=== PATIENT | female | born 1965 | race Caucasian/White ===

== ENCOUNTER 2025-04-22 11:30 | Observation (INO) ==
[2025-04-22] MEDS: ASPIRIN CHEW 324 MG PO STA (12:01)
--- NOTE | 2025-04-22 12:33 | XRay Report ---
Technique: A frontal view of the chest was obtained Comparison is made to the prior examination dated 03/15/2025 Findings: There are no confluent pulmonary infiltrates. The heart size is within normal limits. No pleural effusion or pneumothorax is seen. There is no definite pulmonary nodule. No fracture is noted. There is a cervical fusion Impression: No active disease Electronically signed by Anup Garcia 04-22-2025 12:33 PM
[2025-04-22 12:39] LABS: Hematocrit (blood only) 40.7 % (37.0-47.0); Hemoglobin 14.0 g/dl (12.0-16.0); Immature Granulocytes # (auto) 0.01 K/uL (0.01-0.20); Immature Granulocytes % (auto) 0.1 %; Mean Corpuscular Hemoglobin 31.7 pg (25.0-34.0); Mean Corpuscular Volume 92.1 fL (80.0-100.0); Platelet Count 248 K/uL (130-400); RDW Standard Deviation 40.5 fL (36.4-46.3); Red Blood Count 4.42 M/uL (4.20-5.40); White Blood Count 8.12 K/ul (4.8-10.8)
--- NOTE | 2025-04-22 12:52 | Emergency Department Note ---
History of Present Illness General Chief Complaint: Chest Pain Stated Complaint: CHEST PAIN Time Seen by Provider: 04/22/25 11:41 History of Present Illness Provider Complaint: chest pain Time: 02:00 Duration: intermittent Onset: during rest Pain Location: substernal Pain Radiation: none Severity: moderate Quality: + heaviness Relieved By: + nothing Exacerbated By: + nothing Context: no recent illness, no recent surgery, no recent immobilization, no recent travel, no trauma/injury, no new medications or no history of DVT/PE Associated symptoms: no diaphoresis, no dyspnea, no syncope, no palpitations, no fever or no cough Home Medications Medication Instructions Recorded Confirmed Type citalopram 40 mg tablet 40 mg PO HS 02/17/23 04/22/25 History esomeprazole magnesium 40 mg 40 mg PO HS 02/17/23 04/22/25 History capsule,delayed release metoprolol succinate 25 mg 25 mg PO HS 02/17/23 04/22/25 History tablet,extended release 24 hr sucralfate 1 gram tablet (Carafate) 1 g PO BID PRN gerd 02/17/23 04/22/25 History dicyclomine 10 mg capsule 10 mg PO QID PRN abdominal pain 04/11/24 04/22/25 Rx #14 caps benzonatate 100 mg capsule 100 mg PO TID PRN cough #15 caps 03/15/25 04/22/25 Rx naproxen 500 mg tablet 500 mg PO BID PRN Pain 04/22/25 04/22/25 History tizanidine 2 mg tablet 0 mg PO DIRECTED PRN MUSCLE 04/22/25 04/22/25 History SPASMS Allergies Allergy/AdvReac Type Severity Reaction Status Date / Time adhesive Allergy Mild RASH Verified 04/22/25 14:53 iodine Allergy Mild ON Verified 04/22/25 14:53 SKIN-RASH/BETADINE HAS BEEN OK IN PAST PER PT? azithromycin [From Zithromax] Allergy Unknown CAN'T Verified 04/22/25 14:53 REMEMBER [place] Allergy Mild RASH Uncoded 04/22/25 14:53 Past Med/Surg History Problem List (Updated 04/22/25 @ 15:41 by Popeye Skaggs MD) Chest pain (Acute) Syncope and collapse Gastro-esophageal reflux Brachial neuritis or radiculitis Syncope Cervical stenosis of spinal canal (Acute) Medical History Vitamin D deficiency Tobacco abuse Dysuria Frequency of micturition Injury of right ankle Headache Pain in joint Radiculopathy, cervical region Benign paroxysmal vertigo, bilateral Somnolence Nail disorder Acute sinusitis Cramp and spasm Cervicalgia Diaphragmatic hernia without obstruction or gangrene Toxic effect of contact with other venomous marine animals, accidental (unintentional), initial encounter Chest pain Abdominal pain Pain in right foot Abnormal blood chemistry Hypopotassemia Candidiasis, skin or nails Candidiasis of mouth Malaise and fatigue Acute upper respiratory infection, unspecified Major depressive disorder with single episode Essential hypertension Social History Smoking Status: Current every day smoker Tobacco Type: Cigarettes Preferred Language: [place] Feels Safe at Home: Yes Physical Exam Vital Signs Vital Signs - 24 hr 04/22/25 11:33 04/22/25 12:03 04/22/25 12:03 Temperature 36.7 C Temperature Source Temporal Artery Scan Pulse Rate 79 72 Pulse Rate [Apical] 68 Pulse Rhythm Regular Pulse Rhythm [Apical] Regular Pulse Strength [Apical] Normal Respiratory Rate 19 14 14 Respiratory Effort / Characteristics Non-Labored Spontaneous Non-Labored Spontaneous Respiratory Depth Normal Normal Respiratory Pattern Regular Blood Pressure 149/88 H Blood Pressure [Right Arm] 149/77 H Blood Pressure Mean 108 Blood Pressure Mean [Right Arm] 101 Blood Pressure Position [Right Arm] Lying Pulse Oximetry 99 99 98 Oxygen Delivery Method Room Air Room Air Room Air Sepsis Recent Fever Within 48 Hours No Sepsis New/Unexplained Change in Mental Status No Sepsis Action Taken by Nursing No Action Required 04/22/25 12:05 04/22/25 12:09 04/22/25 14:02 Temperature Temperature Source Pulse Rate 62 Pulse Rate [Apical] 59 L Pulse Rhythm Pulse Rhythm [Apical] Regular Pulse Strength [Apical] Normal Respiratory Rate Respiratory Effort / Characteristics Non-Labored Spontaneous Respiratory Depth Normal Respiratory Pattern Regular Blood Pressure Blood Pressure [Right Arm] 131/79 Blood Pressure Mean Blood Pressure Mean [Right Arm] 96 Blood Pressure Position [Right Arm] Lying Pulse Oximetry 97 98 Oxygen Delivery Method Room Air Room Air Sepsis Recent Fever Within 48 Hours Sepsis New/Unexplained Change in Mental Status Sepsis Action Taken by Nursing Physical Exam GENERAL: oriented to person, place, and time. appears well-developed and well- nourished. HENT: Exam performed. - Head: Normocephalic and atraumatic. EYES: Conjunctivae and EOM are normal. Right eye exhibits no discharge. Left eye exhibits no discharge. No scleral icterus. NECK: Normal range of motion. Neck supple. No JVD present. CV: Normal rate, regular rhythm, normal heart sounds and intact distal pulses. There is no peripheral edema. Palpable radial pulses bue. PULM/CHEST: Effort normal and breath sounds normal. No respiratory distress. No stridor. no wheezes. no rales. ABD: The abdomen is soft. There is no tenderness. NEURO: Motor and sensation grossly intact. SKIN: Skin is warm and dry. He is not diaphoretic. PSYCH: normal mood and affect. Behavior is normal. Judgment and thought content normal. Course Course 1141: The patient was evaluated in room B7. A complete history and physical exam was performed Cardiac monitoring: An order was placed for continuous cardiac monitoring. The monitor shows a rate of 70 with sinus rhythm interpreted by me 1410: Vital signs stable. Labs and imaging are unremarkable. Patient be admitted for chest pain rule out ACS. Administered Medications Discontinued Medications Aspirin (Aspirin Chew 324 Mg) 324 mg PO NOW STA Stop: 04/22/25 11:42 Last Admin: 04/22/25 12:01 Dose: 324 mg Documented By: CHERYL Medical Decision Making Laboratory Data Attestation: I reviewed the patient's lab results. 04/22/25 12:07 04/22/25 13:15 Labs: Lab Results 04/22/25 04/22/25 04/22/25 Range/Units 12:07 13:15 13:31 WBC 8.12 (4.8-10.8) K/ul RBC 4.42 (4.20-5.40) M/uL Hgb 14.0 (12.0-16.0) g/dl POC Hgb 12.6 (12.0-16.0) g/dl Hct 40.7 (37.0-47.0) % POC Hct 37 (37-47) % MCV 92.1 (80.0-100.0) fL MCH 31.7 (25.0-34.0) pg MCHC 34.4 (32.0-36.0) g/dL RDW Std Deviation 40.5 (36.4-46.3) fL RDW Coeff of Jessica 11.9 (11.5-14.5) % Plt Count 248 (130-400) K/uL MPV 10.8 (9.4-12.4) fL Immature Gran % (Auto) 0.1 % Neut % (Auto) 50.6 % Lymph % (Auto) 42.9 % [place] % (Auto) 4.9 % Eos % (Auto) 1.0 % Baso % (Auto) 0.5 % Neut # (Auto) 4.11 (1.40-6.50) K/uL Lymph # (Auto) 3.48 H (1.20-3.40) K/uL [place] # (Auto) 0.40 (0.11-0.59) K/uL Eos # (Auto) 0.08 (0.00-0.50) K/uL Baso # (Auto) 0.04 (0.00-0.20) K/uL Immature Gran # (Auto) 0.01 (0.01-0.20) K/uL PT Cancelled 10.2 INR Cancelled 0.9 APTT Cancelled 27 PTT Ratio Cancelled 1.0 POC Sodium 142 (135-144) mmol/L Sodium 140 (136-145) mmol/L POC Potassium 4.0 (3.3-5.0) mmol/L Potassium TNP 4.1 POC Chloride 105 (101-112) mmol/L Chloride 107 (98-107) mmol/L Carbon Dioxide 29 (21-32) mmol/L POC Total CO2 27 (24-31) mmol/L Anion Gap 4 (3-11) POC Anion Gap 16.0 (16-25) mmol/L POC BUN 15 (7-18) mg/dl BUN 15 (6-23) mg/dl Creatinine 0.83 (0.6-1.2) mg/dl POC Creatinine 0.9 (0.6-1.3) mg/dl Est Cr Clr Drug Dosing 74.5 ml/min eGFR 82.17 BUN/Creatinine Ratio 18.1 (10-20) Glucose 95 (70-99(Fasting)) mg/dl POC Glucose (other) 95 (70-99) mg/dl Calcium 9.4 (8.6-10.3) mg/dl POC Ioniz Calcium Ralph 1.16 (1.12-1.32) mmol/l Total Bilirubin 0.5 (0.2-1.0) mg/dl Direct Bilirubin 0.1 (0-0.2) mg/dl AST 20 (13-39) U/L ALT 33 (7-52) U/L Alkaline Phosphatase 76 (34-104) U/L Troponin I High Sens 3.5 (0-14) pg/ml Total Protein 6.3 (6.0-8.3) gm/dl Albumin 3.7 (3.4-5.0) gm/dl Lipase 11 (11-82) U/L Imaging Data Chest x-ray: Attestation: I personally reviewed and interpreted this imaging study as follows: My impression: Chest x-ray negative. Airway clear. No pneumothorax. No consolidation. No cardiomegaly or cephalization.. No free air under the diaphragm. No fractures of the skeletal structures. Radiologist's impression: Chest X-Ray 04/22/25 11:41 Technique: A frontal view of the chest was obtained Comparison is made to the prior examination dated 03/15/2025 Findings: There are no confluent pulmonary infiltrates. The heart size is within normal limits. No pleural effusion or pneumothorax is seen. There is no definite pulmonary nodule. No fracture is noted. There is a cervical fusion Impression: No active disease Electronically signed by Anup Garcia 04-22-2025 12:33 PM ECG Data Attestation: I personally reviewed and interpreted this ECG as follows: Rate (beats per minute): 71 Rhythm: normal sinus Findings: no ST depression, no ST elevation or no prolonged QT Additional Comments: QRS 76 baseline artifact and wander. [facility] Narrative 1141: The patient was evaluated in room B7. A complete history and physical exam was performed Cardiac monitoring: An order was placed for continuous cardiac monitoring. The monitor shows a rate of 70 with sinus rhythm interpreted by me 1410: Vital signs stable. Labs and imaging are unremarkable. Patient be admitted for chest pain rule out ACS. Impression & Plan Chest pain Discharge Plan Visit Data Chief Complaint: Chest Pain Stated Complaint: CHEST PAIN ED Provider: Popeye Skaggs Discharge Problem: Chest pain Patient Disposition: Being Evaluated by Hospitalist Condition: Fair Forms Stand Alone Forms: My [facility] Prescriptions Prescriptions: No Action citalopram 40 mg tablet 40 mg PO HS metoprolol succinate 25 mg tablet extended release 24 hr 25 mg PO HS sucralfate [Carafate] 1 gram tablet 1 g PO BID PRN (Reason: gerd) esomeprazole magnesium 40 mg capsule,delayed release(DR/EC) 40 mg PO HS benzonatate 100 mg capsule 100 mg PO TID PRN (Reason: cough) Qty: 15 0RF dicyclomine 10 mg capsule 10 mg PO QID PRN (Reason: abdominal pain) Qty: 14 0RF tizanidine 2 mg Tablet 0 mg PO DIRECTED PRN (Reason: MUSCLE SPASMS) Rx Instructions: PT UNSURE OF STRENGTH, UNABLE TO VERIFY. naproxen 500 mg Tablet 500 mg PO BID PRN (Reason: Pain) Referrals Referrals: Yakov Gardner [Primary Care Provider] - Discharge Problem: Chest pain Qualifiers: Chest pain type: unspecified Qualified Code(s): R07.9 - Chest pain, unspecified
[2025-04-22 13:02] LABS: Anion Gap 4 (3-11); Blood Urea Nitrogen 15 mg/dl (6-23); Calcium 9.4 mg/dl (8.6-10.3); Carbon Dioxide 29 mmol/L (21-32); Chloride 107 mmol/L (98-107); Creatinine Clr Calc Pharmacy 74.5 ml/min; Glucose 95 mg/dl (70-99(Fasting)); Lipase 11 U/L (11-82); Sodium 140 mmol/L (136-145)
[2025-04-22 13:49] LABS: Alanine Aminotransferase 33.0 U/L (7-52); Alkaline Phosphatase 76.0 U/L (34-104); Bilirubin,Total 0.5 mg/dl (0.2-1.0); Potassium 4.1 mmol/L (3.5-5.1); Total Protein 6.3 gm/dl (6.0-8.3)
[2025-04-22 14:09] LABS: INR 0.9 (0.9-1.1); Partial Thromboplastin Time 27 Seconds (21-31); Prothrombin Time 10.2 Seconds (9.0-12.0)
--- NOTE | 2025-04-22 15:17 | History & Physical Report ---
Date of Service April 22, 2025 Assessment & Plan (1) Chest pain: (2) Essential hypertension: (3) Tobacco abuse: (4) Gastro-esophageal reflux: (5) Hiatal hernia: (6) Hyperlipidemia: Plan Drake 59yo female with history of GERD, hiatal hernia, HTN, hyperlipidemia, cervical spine stenosis s/p fusion in the past, and tobacco dependence presents from home with continuous mid-sternal chest pain starting about 0200 this morning. Patient was sleeping and was awakened by the chest pain. She had nausea/emesis x 1 in the middle of the night but none since. In addition had rhinovirus URI/bronchitis in late February. #chest pain - -troponin x 2 negative -with continuous pain of 12+ hours duration along with normal EKGs x 2 and negative troponins it is highly unlikely her pain is due to ischemia -with that said she does have CAD risk factors including HTN, tobacco dependence, and hyperlipidemia -she did receive full aspirin 325mg x 1 in the ER -will obtain a 3rd troponin this evening to be complete -her symptoms suggest an esophageal or gastric etiology for her pain -however, she has had NO significant response to IV pepcid, IV protonix, carafate, and magic mouthwash -she is drinking water and is having no dysphagia thus esophageal food impaction is unlikely -can't rule out PUD -with her recent rhinovirus infection could she have a post-viral pericarditis? -aortic dissection? -PE? 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 Patient was sleeping and was awakened by the chest pain. Upon awakening she felt like a "pill might be stuck" in her esophagus as she had taken her PM medications at bedtime. She had nausea followed by an episode of emesis. She has had no emesis since then. For the next 2 hours she had ongoing pain and had a hard time sleeping. Due to the pain and her known GERD/hiatal hernia she thought she should take nexium. Indeed she took nexium but experienced no pain relief. She reports some mild burping today and feels like if she could burp more it might relieve her pain. During my admission assessment I asked her to take a deep breath and she did report that his provoked the pain. She also mentioned that movement makes the pain worse. The chest pain does not radiate to the head, neck or arms. The pain can radiate into the throat. Denies any abdominal pain. Denies any back pain. She has felt a little short of breath with this pain but the dyspnea is not constant. About 1 month ago she had an episode of bronchitis caused by rhinovirus. She was seen in our ER in late February for such. Denies any lingering URI symptoms. Denies any fevers or chills. 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 Allergies Allergy/AdvReac Type Severity Reaction Status Date / Time adhesive Allergy Mild RASH Verified 04/22/25 14:53 iodine Allergy Mild ON Verified 04/22/25 14:53 SKIN-RASH/BETADINE HAS BEEN OK IN PAST PER PT? azithromycin [From Zithromax] Allergy Unknown CAN'T Verified 04/22/25 14:53 REMEMBER [place] Allergy Mild RASH Uncoded 04/22/25 14:53 Home Medications Medication Instructions Recorded Confirmed Type citalopram 40 mg tablet 40 mg PO HS 02/17/23 04/22/25 History esomeprazole magnesium 40 mg 40 mg PO HS 02/17/23 04/22/25 History capsule,delayed release metoprolol succinate 25 mg 25 mg PO HS 02/17/23 04/22/25 History tablet,extended release 24 hr sucralfate 1 gram tablet (Carafate) 1 g PO BID PRN gerd 02/17/23 04/22/25 History dicyclomine 10 mg capsule 10 mg PO QID PRN abdominal pain 04/11/24 04/22/25 Rx #14 caps benzonatate 100 mg capsule 100 mg PO TID PRN cough #15 caps 03/15/25 04/22/25 Rx naproxen 500 mg tablet 500 mg PO BID PRN Pain 04/22/25 04/22/25 History tizanidine 2 mg tablet 0 mg PO DIRECTED PRN MUSCLE 04/22/25 04/22/25 History SPASMS Past Med/Surg History Problem List (Updated 04/22/25 @ 19:52 by Diego Bach MD) Hyperlipidemia Hiatal hernia Chest pain (Acute) Syncope and collapse Gastro-esophageal reflux Brachial neuritis or radiculitis Syncope Cervical stenosis of spinal canal (Acute) Medical History (Updated 04/22/25 @ 19:52 by Diego Bach MD) Vitamin D deficiency Tobacco abuse Dysuria Frequency of micturition Injury of right ankle Headache Pain in joint Radiculopathy, cervical region Benign paroxysmal vertigo, bilateral Somnolence Nail disorder Acute sinusitis Cramp and spasm Cervicalgia Diaphragmatic hernia without obstruction or gangrene Toxic effect of contact with other venomous marine animals, accidental (unintentional), initial encounter Chest pain Abdominal pain Pain in right foot Abnormal blood chemistry Hypopotassemia Candidiasis, skin or nails Candidiasis of mouth Malaise and fatigue Acute upper respiratory infection, unspecified Major depressive disorder with single episode Essential hypertension Surgical History (Updated 04/22/25 @ 19:37 by Diego Bach MD) S/P cervical spinal fusion H/O: hysterectomy Family History (Updated 04/22/25 @ 19:39 by Diego Bach MD) Mother , age 79 Hypertension Father , age 84 Hypertension Mitral valve prolapse Aortic valve disease Brother Mitral valve prolapse Sister Mitral valve prolapse Denies family history of Coronary heart disease Stroke Social History (Updated 04/22/25 @ 19:40 by Diego Bach MD) Smoking Status: Current every day smoker Tobacco Type: Cigarettes Age Started Using Tobacco: 26; packs per day: 0.75; Cigarettes Per Day: 3/4 pack; Second Hand Exposure: Yes; Do You Dip or Chew Tobacco: No; Tobacco Cessation Education Requested by Patient: No Hx Alcohol Use: Yes Hx Substance Use: No Preferred Language: Kazakh Communication Ability: Effective 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 Beliefs That Will Affect Care: None marital status: Current Living Situation: Significant Other current occupational status: employed 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 [email or web address] How many Children do You have: 3 Feels Safe at Home: Yes Safety Concerns: Feels Safe At This Time Assistive Devices: Glasses Review of Systems Review of Systems: gen - no fevers or chills; no weight loss; eating well eyes - no ocular symptoms or visual change HENT - no dysphagia, no ear pain, no sore throat or URI symptoms (recent rhinovirus is resolved) head - mild headache, left parietal area, for about a week CV - chest pain as noted in HPI; no edema; no palpitations pulm - mild dyspnea only, no cough or congestion GI - nausea with emesis early this am, none since; no abd pain; no blood in stool - no LUTS musculo - no joint pains skin - no rash endo - no diabetes neuro - no focal motor weakness, mild headache for several days; mild intermitte nt numbness of both arms Physical Exam Physical Exam: gen - occasional pain in chest (with resulting grimace), otherwise NAD, awake, alert eyes - PERRL HENT - TMs clear b/l, nose clear, mouth with MMM, no lesions neck - no JVD, no lymph nodes, no goiter heart - RRR, s1 s2, no murmur/rub chest - no reproducible chest wall discomfort to palpation lungs - CTA b/l, no rales abd - soft NT ND BS+; no HSM ext - no edema, pulses 2+ b/l feet skin - no rash psych - a/o x 3 neuro - strength 5/5 x 4 exts; DTRs 2-3+ b/l upper & lower exts Results & Data Results & Data Vital Signs (Past 12 Hours) Vital Signs Temp Pulse Pulse Resp BP BP Pulse Ox 04/22/25 14:02 59 L 131/79 98 04/22/25 12:09 62 04/22/25 12:05 97 04/22/25 12:03 72 14 98 04/22/25 12:03 68 14 149/77 H 99 04/22/25 11:33 36.7 C 79 19 149/88 H 99 O2 Del Method 04/22/25 14:02 Room Air 04/22/25 12:09 04/22/25 12:05 Room Air 04/22/25 12:03 Room Air 04/22/25 12:03 Room Air 04/22/25 11:33 Room Air Laboratory Results Laboratory Results - last 24 hr 04/22/25 04/22/25 04/22/25 12:07 13:15 13:31 WBC 8.12 RBC 4.42 Hgb 14.0 POC Hgb 12.6 Hct 40.7 POC Hct 37 MCV 92.1 MCH 31.7 MCHC 34.4 RDW Std Deviation 40.5 RDW Coeff of Jessica 11.9 Plt Count 248 MPV 10.8 Immature Gran % (Auto) 0.1 Neut % (Auto) 50.6 Lymph % (Auto) 42.9 [place] % (Auto) 4.9 Eos % (Auto) 1.0 Baso % (Auto) 0.5 Neut # (Auto) 4.11 Lymph # (Auto) 3.48 H [place] # (Auto) 0.40 Eos # (Auto) 0.08 Baso # (Auto) 0.04 Immature Gran # (Auto) 0.01 PT Cancelled 10.2 INR Cancelled 0.9 APTT Cancelled 27 PTT Ratio Cancelled 1.0 POC Sodium 142 Sodium 140 POC Potassium 4.0 Potassium TNP 4.1 POC Chloride 105 Chloride 107 Carbon Dioxide 29 POC Total CO2 27 Anion Gap 4 POC Anion Gap 16.0 POC BUN 15 BUN 15 Creatinine 0.83 POC Creatinine 0.9 Est Cr Clr Drug Dosing 74.5 eGFR 82.17 BUN/Creatinine Ratio 18.1 Glucose 95 POC Glucose (other) 95 Calcium 9.4 POC Ioniz Calcium Ralph 1.16 Total Bilirubin 0.5 Direct Bilirubin 0.1 AST 20 ALT 33 Alkaline Phosphatase 76 Troponin I High Sens 3.5 C-Reactive Protein Total Protein 6.3 Albumin 3.7 Lipase 11 04/22/25 04/22/25 16:16 19:32 WBC RBC Hgb POC Hgb Hct POC Hct MCV MCH MCHC RDW Std Deviation RDW Coeff of Jessica Plt Count MPV Immature Gran % (Auto) Neut % (Auto) Lymph % (Auto) [place] % (Auto) Eos % (Auto) Baso % (Auto) Neut # (Auto) Lymph # (Auto) [place] # (Auto) Eos # (Auto) Baso # (Auto) Immature Gran # (Auto) PT INR APTT PTT Ratio POC Sodium Sodium POC Potassium Potassium POC Chloride Chloride Carbon Dioxide POC Total CO2 Anion Gap POC Anion Gap POC BUN BUN Creatinine POC Creatinine Est Cr Clr Drug Dosing eGFR BUN/Creatinine Ratio Glucose POC Glucose (other) Calcium POC Ioniz Calcium Ralph Total Bilirubin Direct Bilirubin AST ALT Alkaline Phosphatase Troponin I High Sens 3.0 Pending C-Reactive Protein Pending Total Protein Albumin Lipase Diagnostic Findings Chest X-Ray 04/22/25 11:41 Technique: A frontal view of the chest was obtained Comparison is made to the prior examination dated 03/15/2025 Findings: There are no confluent pulmonary infiltrates. The heart size is within normal limits. No pleural effusion or pneumothorax is seen. There is no definite pulmonary nodule. No fracture is noted. There is a cervical fusion Impression: No active disease Electronically signed by Anup Garcia 04-22-2025 12:33 PM ECG Additional Comments: EKG - my reading - NSR, normal intervals, no ST changes Code Status & VTE Plan Code Status full code PG Care Time/CCT Total # of Minutes Spent Total Time Spent with Patient: Total time spent is greater than 50% in coordination of care (as documented) at patient's floor/unit and/or counseling patient: Coding Level of Care Code 98351 INT INP/OBS CARE 3MIN Diagnoses Chest pain R07.9 Chest pain type: unspecified Essential hypertension I10 Tobacco abuse Z72.0 Gastro-esophageal reflux K21.9 Hiatal hernia K44.9 Hyperlipidemia E78.5 (1) Chest pain Chest pain type: unspecified Qualified Code(s): R07.9 - Chest pain, unspecified
[2025-04-22] MEDS: SUCRALFATE 1 GM/10 ML UDC PO STA (16:05)
[2025-04-22] MEDS: FAMOTIDINE 20MG IV PUSH 20 MG/5 ML SYR IV STA (16:05)
[2025-04-22] MEDS: FIRST - Mouthwash BLM 5 ML UDP PO ONE (17:47)
[2025-04-22] MEDS: PANTOprazole 40 MG/10 ML SYR IV ONE (17:47)
[2025-04-22] MEDS ORDERED: ONDANSETRON INJ 2 MG/ML 2 ML VIAL IV PRN (18:34)
[2025-04-22] MEDS: OPTIRAY 320 125ml IV ONE (20:11)
[2025-04-22] MEDS: SODIUM CHLORIDE 0.9% 1,000 ML IV SCH (20:14)
[2025-04-22] MEDS: METOPROLOL SUCC 25MG EXT REL TAB PO SCH (20:15)
[2025-04-22] MEDS: CITALOPRAM 40 MG TAB PO SCH (20:15)
[2025-04-22] MEDS: NICOTINE 14 MG/24 HR PATCH TD SCH (20:28)
--- NOTE | 2025-04-22 23:20 | CT Scan Report ---
Exam(s): CTA CHEST With Contrast IV Amt: 119ml opti 320 EXAM: CT Angiography Chest With Intravenous Contrast CLINICAL HISTORY: Reason for exam: refractory mid-sternal CP. TECHNIQUE: Axial computed tomographic angiography images of the chest with intravenous contrast. CTDI is 16.44 mGy and DLP is 489.65 mGy-cm. Automated exposure control was utilized for the study. A dose lowering technique was utilized adhering to the principles of ALARA. MIP reconstructed images were created and reviewed. CONTRAST: Patient received 119ml opti 320 of IV contrast COMPARISON: No relevant prior studies available. FINDINGS: Pulmonary arteries: No pulmonary embolism is seen. Aorta: No thoracic aortic aneurysm or dissection. Lungs: No mass. No consolidation. Pleural space: No significant effusion. No pneumothorax. Heart: The heart is normal in size.. Bones/joints: There are some degenerative changes in the spine.. Soft tissues: There is a catheter noted within the left breast.. Lymph nodes: There are small mediastinal lymph nodes. IMPRESSION: No pulmonary embolism is seen. Electronically signed by: Eric Adam MD 04/22/25 23:19 PM
[2025-04-23] MEDS ORDERED: KETOROLAC TROMETHAMINE 15 MG/ML VIAL IV PRN (00:26)
--- NOTE | 2025-04-23 07:30 | Electrocardiogram Report ---
Test Reason : Blood Pressure : */* mmHG Vent. Rate : 71 BPM Atrial Rate : 71 BPM P-R Int : 138 ms QRS Dur : 76 ms QT Int : 380 ms P-R-T Axes : 70 51 77 degrees QTcB Int : 412 ms Normal sinus rhythm Normal ECG Confirmed by Erick Trejo ([id number]) on 04/23/2025 7:30:04 AM Referred By: Confirmed By: Erick Trejo
[2025-04-23] MEDS: REMOVE NICODERM PATCH SCH (09:10)
--- NOTE | 2025-04-23 09:45 | XCELERA ---
[id number]
--- NOTE | 2025-04-23 11:57 | Electrocardiogram Report ---
Test Reason : Blood Pressure : */* mmHG Vent. Rate : 61 BPM Atrial Rate : 61 BPM P-R Int : 132 ms QRS Dur : 76 ms QT Int : 402 ms P-R-T Axes : 58 41 33 degrees QTcB Int : 404 ms Normal sinus rhythm Normal ECG When compared with ECG of 22-Apr-2025 11:38, No significant change was found Confirmed by Erick Trejo ([id number]) on 04/23/2025 11:57:37 AM Referred By: REFERRED SELF Confirmed By: Erick Trejo
[2025-04-23] MEDS: FAMOTIDINE 20MG IV PUSH 20 MG/5 ML SYR IV ONE (12:58)
[2025-04-23] MEDS: SUCRALFATE 1 GM/10 ML UDC PO SCH (16:03)
--- NOTE | 2025-04-23 21:09 | Hospitalist Progress Note ---
Date of Service April 23, 2025 Assessment & Plan (1) Chest pain: (2) Essential hypertension: (3) Tobacco abuse: (4) Gastro-esophageal reflux: (5) Hiatal hernia: (6) Hyperlipidemia: Plan Pleasant 59yo female with history of GERD, hiatal hernia, HTN, hyperlipidemia, cervical spine stenosis s/p fusion in the past, and tobacco dependence who presented from home with continuous mid-sternal chest pain starting about 0200 the AM of admission. Patient was sleeping and was awakened by the chest pain. She had nausea/emesis x 1 in the middle of the night but none since. In addition had rhinovirus URI/bronchitis in late February. #chest pain - -troponin x 3 negative -with continuous pain of 15+ hours duration along with normal EKGs x 3 and negative troponins it is highly unlikely her pain is due to ischemia -with that said she does have CAD risk factors including HTN, tobacco dependence, and hyperlipidemia -echo with normal LV function and normal LV wall motion -telemetry thus far negative -her symptoms suggest an esophageal or gastric etiology for her pain -she has received IV pepcid, IV protonix, carafate, and magic mouthwash since admission with slow improvement in symptoms -her symptoms are provoked by eating/drinking - nearly immediately - suggesting esophagitis or gastritis or both -she is drinking water and is having no dysphagia thus esophageal food impaction unlikely (and not seen on CT chest) -CT chest w/o PE, dissection, pneumonia, etc. -with her recent rhinovirus infection could she have a post-viral pericarditis? -sed rate, CRP both wnl -EKG without findings to suggest pericarditis -echo without pericardial effusion -pain not worsened with supine position -pain not pleuritic -thus - pericarditis unlikely -will presume pain is esophageal/gastric in etiology -cont PPI twice daily -cont carafate QID -pepcid prn -was going to d/c her home today, but at dinner had nausea - thus, d/c canceled -if pain/nausea persist then consider CT a/p and/or GI consultation #HTN - -cont meto succinate 25mg HS #tobacco dependence - -adolescent counselor to quit -nicoderm patch 14mg/day #GERD / hiatal hernia - -PPI twice daily -carafate #DVT proph - -low risk, defer chemical means at this time -ambulation observe overnight Admission and Anticipated Discharge Date Admission Date: April 22, 2025 Subjective no events overnight chest discomfort/esophageal discomfort is not worse with laying flat in bed pain not worse with taking deep breaths any time she has eaten today it causes mild discomfort, but it has not prevented her from eating breakfast/lunch/dinner no vomiting however, after eating her evening meal, she had mild nausea no pain in upper abdomen no dyspnea Review of Systems Review of Systems: gen - no fevers or chills pulm - no cough GI - no diarrhea Physical Exam Physical Exam: gen - looks well, NAD HENT - MMM, no lesions neck - no JVD heart - RRR, s1 s2, no murmur/rub lungs - CTA b/l, no rales abd - soft NT ND BS+; no HSM ext - no edema, pulses 2+ b/l feet Results & Data Results & Data Vital Signs (Past 12 Hours) Vital Signs Temp Pulse Pulse Resp BP BP Pulse Ox 04/23/25 19:04 36.7 C 66 16 145/81 H 93 04/23/25 18:45 36.6 C 63 18 124/76 113/74 96 04/23/25 15:13 63 04/23/25 10:57 36.6 C 63 18 124/76 96 O2 Del Method 04/23/25 19:04 Room Air 04/23/25 18:45 04/23/25 15:13 04/23/25 10:57 Room Air Laboratory Results Laboratory Results - last 48 hr 04/22/25 04/22/25 04/22/25 12:07 13:15 13:31 WBC 8.12 RBC 4.42 Hgb 14.0 POC Hgb 12.6 Hct 40.7 POC Hct 37 MCV 92.1 MCH 31.7 MCHC 34.4 RDW Std Deviation 40.5 RDW Coeff of Jessica 11.9 Plt Count 248 MPV 10.8 Immature Gran % (Auto) 0.1 Neut % (Auto) 50.6 Lymph % (Auto) 42.9 Ford % (Auto) 4.9 Eos % (Auto) 1.0 Baso % (Auto) 0.5 Neut # (Auto) 4.11 Lymph # (Auto) 3.48 H Ford # (Auto) 0.40 Eos # (Auto) 0.08 Baso # (Auto) 0.04 Immature Gran # (Auto) 0.01 ESR PT Cancelled 10.2 INR Cancelled 0.9 APTT Cancelled 27 PTT Ratio Cancelled 1.0 POC Sodium 142 Sodium 140 POC Potassium 4.0 Potassium TNP 4.1 POC Chloride 105 Chloride 107 Carbon Dioxide 29 POC Total CO2 27 Anion Gap 4 POC Anion Gap 16.0 POC BUN 15 BUN 15 Creatinine 0.83 POC Creatinine 0.9 Est Cr Clr Drug Dosing 74.5 eGFR 82.17 BUN/Creatinine Ratio 18.1 Glucose 95 POC Glucose (other) 95 Calcium 9.4 POC Ioniz Calcium Ralph 1.16 Total Bilirubin 0.5 Direct Bilirubin 0.1 AST 20 ALT 33 Alkaline Phosphatase 76 Troponin I High Sens 3.5 C-Reactive Protein Total Protein 6.3 Albumin 3.7 Lipase 11 04/22/25 04/22/25 16:16 19:32 WBC RBC Hgb POC Hgb Hct POC Hct MCV MCH MCHC RDW Std Deviation RDW Coeff of Jessica Plt Count MPV Immature Gran % (Auto) Neut % (Auto) Lymph % (Auto) Ford % (Auto) Eos % (Auto) Baso % (Auto) Neut # (Auto) Lymph # (Auto) Ford # (Auto) Eos # (Auto) Baso # (Auto) Immature Gran # (Auto) ESR 12 PT INR APTT PTT Ratio POC Sodium Sodium POC Potassium Potassium POC Chloride Chloride Carbon Dioxide POC Total CO2 Anion Gap POC Anion Gap POC BUN BUN Creatinine POC Creatinine Est Cr Clr Drug Dosing eGFR BUN/Creatinine Ratio Glucose POC Glucose (other) Calcium POC Ioniz Calcium Ralph Total Bilirubin Direct Bilirubin AST ALT Alkaline Phosphatase Troponin I High Sens 3.0 3.2 C-Reactive Protein < 0.50 Total Protein Albumin Lipase Diagnostic Findings Echo: nl LV & RV function nl valvular function no pericardial effusion nl LV wall motion all EKGs - NSR, no ST changes PG Care Time/CCT Total # of Minutes Spent Total Time Spent with Patient: Total time spent is greater than 50% in coordination of care (as documented) at patient's floor/unit and/or counseling patient: Coding Level of Care Code 18026 SUB INP/OBS CARE 2/35MIN Diagnoses Chest pain R07.9 Chest pain type: unspecified Essential hypertension I10 Tobacco abuse Z72.0 Gastro-esophageal reflux K21.9 Hiatal hernia K44.9 Hyperlipidemia E78.5 (1) Chest pain Chest pain type: unspecified Qualified Code(s): R07.9 - Chest pain, unspecified
[2025-04-24 07:45] LABS: Hematocrit (blood only) 38.8 % (37.0-47.0); Hemoglobin 13.2 g/dl (12.0-16.0); Mean Corpuscular Hemoglobin 30.8 pg (25.0-34.0); Mean Corpuscular Volume 90.4 fL (80.0-100.0); Platelet Count 201 K/uL (130-400); RDW Standard Deviation 38.5 fL (36.4-46.3); Red Blood Count 4.29 M/uL (4.20-5.40); White Blood Count 7.36 K/ul (4.8-10.8)
[2025-04-24 08:14] LABS: Alanine Aminotransferase 28.0 U/L (7-52); Albumin Globulin Ratio 1.6 (0.9-2); Alkaline Phosphatase 72.0 U/L (34-104); Anion Gap 4.0 (3-11); Bilirubin,Total 0.6 mg/dl (0.2-1.0); Blood Urea Nitrogen 17.0 mg/dl (6-23); Calcium 9.1 mg/dl (8.6-10.3); Carbon Dioxide 30.0 mmol/L (21-32); Chloride 106.0 mmol/L (98-107); Creatinine Clr Calc Pharmacy 64.5 ml/min; Globulin 2.4 gm/dl (2.5-4.0); Glucose 105.0 mg/dl (70-99(Fasting)); Potassium 3.9 mmol/L (3.5-5.1); Sodium 140.0 mmol/L (136-145); Total Protein 6.3 gm/dl (6.0-8.3)
--- NOTE | 2025-04-25 11:48 | Electrocardiogram Report ---
Test Reason : Blood Pressure : */* mmHG Vent. Rate : 52 BPM Atrial Rate : 52 BPM P-R Int : 116 ms QRS Dur : 74 ms QT Int : 428 ms P-R-T Axes : 59 52 37 degrees QTcB Int : 398 ms Sinus bradycardia Otherwise normal ECG When compared with ECG of 22-Apr-2025 15:56, No significant change was found Confirmed by Erick Trejo ([id number]) on 04/25/2025 11:47:41 AM Referred By: REFERRED SELF Confirmed By: Erick Trejo
--- NOTE | 2025-04-26 08:55 | Discharge Summary ---
Discharge Summary Date of Service April 26, 2025 Principal Dx & Hospital Course #1 = Principal Diagnosis (1) Chest pain: (2) Essential hypertension: (3) Tobacco abuse: (4) Gastro-esophageal reflux: (5) Hiatal hernia: (6) Hyperlipidemia: Plan Pleasant 59yo female with history of GERD, hiatal hernia, HTN, hyperlipidemia, cervical spine stenosis s/p fusion in the past, and tobacco dependence who presented from home with continuous mid-sternal chest pain starting about 0200 the AM of admission. Patient was sleeping and was awakened by the chest pain. She had nausea/emesis x 1 in the middle of the night but none since. In addition had rhinovirus URI/bronchitis in late February. #chest pain - -troponin x 3 negative -with continuous pain of 15+ hours duration along with normal EKGs x 3 and ne gative troponins it is highly unlikely her pain is due to ischemia -with that said she does have CAD risk factors including HTN, tobacco dependence, and hyperlipidemia -echo with normal LV function and normal LV wall motion -telemetry thus far negative -her symptoms suggest an esophageal or gastric etiology for her pain -she has received IV pepcid, IV protonix, carafate, and magic mouthwash since admission with slow improvement in symptoms -her symptoms are provoked by eating/drinking - nearly immediately - suggesting esophagitis or gastritis or both -she is drinking water and is having no dysphagia thus esophageal food impaction unlikely (and not seen on CT chest) -CT chest w/o PE, dissection, pneumonia, etc. -with her recent rhinovirus infection could she have a post-viral pericarditis? -sed rate, CRP both wnl -EKG without findings to suggest pericarditis -echo without pericardial effusion -pain not worsened with supine position -pain not pleuritic -thus - pericarditis unlikely -will presume pain is esophageal/gastric in etiology -cont PPI twice daily -cont carafate QID -pepcid prn -was going to d/c her home today, but at dinner had nausea - thus, d/c canceled -if pain/nausea persist then consider CT a/p and/or GI consultation #HTN - -cont meto succinate 25mg HS #tobacco dependence - -dependency counselor to quit -nicoderm patch 14mg/day #GERD / hiatal hernia - -PPI twice daily -carafate #DVT proph - -low risk, defer chemical means at this time -ambulation observe overnight Admission HPI Per Admitting Provider Pleasant 59yo female with history of GERD, hiatal hernia, HTN, hyperlipidemia, cervical spine stenosis s/p fusion in the past, and tobacco dependence presents from home with continuous mid-sternal chest pain starting about 0200 this morning. Patient was sleeping and was awakened by the chest pain. Upon awakening she felt like a "pill might be stuck" in her esophagus as she had taken her PM medications at bedtime. She had nausea followed by an episode of emesis. She has had no emesis since then. For the next 2 hours she had ongoing pain and had a hard time sleeping. Due to the pain and her known GERD/hiatal hernia she thought she should take nexium. Indeed she took nexium but experienced no pain relief. She reports some mild burping today and feels like if she could burp more it might relieve her pain. During my admission assessment I asked her to take a deep breath and she did report that his provoked the pain. She also mentioned that movement makes the pain worse. The chest pain does not radiate to the head, neck or arms. The pain can radiate into the throat. Denies any abdominal pain. Denies any back pain. She has felt a little short of breath with this pain but the dyspnea is not constant. About 1 month ago she had an episode of bronchitis caused by rhinovirus. She was seen in our ER in late February for such. Denies any lingering URI symptoms. Denies any fevers or chills. 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 Discharge Exam gen - looks well, NAD HENT - MMM, no lesions neck - no JVD heart - RRR, s1 s2, no murmur/rub lungs - CTA b/l, no rales abd - soft NT ND BS+; no HSM ext - no edema, pulses 2+ b/l feet Discharge Plan Discharge Items Patient Disposition: Home - Self-Care Reason For Visit: CHEST PAIN Discharge Diagnosis: 1. chest pain - likely due to esophageal and/or stomach irritation -no evidence of heart attack (blood work for the heart normal x 3; echocardiogram was normal; EKGs were normal; telemetry heart monitoring was normal) -no evidence of blood clots in the lungs (pulmonary emboli) on CT scan of chest -no pneumonia on CT scan of chest 2. GERD 3. history of hiatal hernia 4. tobacco use Activity: As commented below Activity Comment: gradually increase your activity over the next several days Non-emergency contact: Primary Care Provider Call non-emergency contact if: you have any medication questions, your symptoms worsen, your pain is not controlled and your pain is worsening Follow-up/Referrals: Yakov Gardner [Primary Care Provider] - (see Dr Gardner or one of his partners THIS WEEK for recheck; please ask for referral back to your GI doctor in [place] to have repeat upper endoscopy (EGD)) Diet: Heart Healthy Diet Comment: soft/bland diet (see handout) Addtl Attending Provider Instructions: Ms Daly, You were hospitalized for a prolonged episode of chest discomfort. Symptoms gradually improved with use of antacid medicines. Large work-up to ensure this was not your heart was normal/negative. Troponins (blood work for the heart) x 3 were normal. EKGs were normal. Echocardiogram showed normal heart function and normal valve function. Telemetry heart monitoring did not show any abnormal heart rhythms. We performed CT scan of your chest and this did not show pulmonary emboli blood clots, dissection of your aorta, pneumonia, tumors, fluid or other abnormalities. At this time we have you on a combination of pantoprazole and carafate (sucralfate). Both of these block stomach acid to allow healing in your stomach and esophagus. Recommendations - 1. pantoprazole 40mg twice daily - take your first dose TONIGHT at bedtime. 2. carafate (sucralfate) 1 gram three times daily, about 30 minutes before each meal - for 1 week only. 3. if needed you can take [id number] pepcid (famotidine) 20mg up to twice daily as needed for reflux symptoms, upset stomach, etc. I suspect that with pantoprazole & carafate you likely won't have to take pepcid that often. 4. reflux and hiatal hernia precautions - see handouts. 5. soft/bland diet for at least 1 week - see handout. 6. please avoid use of filh-cgp-bhmelqz anti-inflammatory pills including aspirin, motrin, ibuprofen, naprosyn, aleve as these can irritate your stomach & esophagus. 7. please avoid all forms of alcohol over the next 1-2 weeks. 8. please limit caffeinated beverages to 1-2/day over the next several days. 9. I would recommend seeing your gastrointestinal doctor in [place] and having upper endoscopy ("EGD") as soon as possible. 10. finally, if you have persistent or worsening chest symptoms despite taking the prescribed antacids, shortness of breath, sweats, nausea/vomiting - please seek medical attention right away by returning to [facility]. It was our pleasure caring for you! -Diego Bach, [facility] Pending Studies at Discharge: No Stand-Alone Forms: My [facility], Smoking Cessation Medications and DC Order Prescriptions: New ondansetron 4 mg tablet,disintegrating 4 mg PO Q6H PRN (Reason: nausea and vomiting) Qty: 14 0RF Continued citalopram 40 mg tablet 40 mg PO HS metoprolol succinate 25 mg tablet extended release 24 hr 25 mg PO HS benzonatate 100 mg capsule 100 mg PO TID PRN (Reason: cough) Qty: 15 0RF dicyclomine 10 mg capsule 10 mg PO QID PRN (Reason: abdominal pain) Qty: 14 0RF Changed tizanidine 2 mg Tablet 2 mg PO Q8H PRN (Reason: MUSCLE SPASMS) Qty: 0 0RF Rx Instructions: PT UNSURE OF STRENGTH, UNABLE TO VERIFY. sucralfate [Carafate] 1 gram tablet 1 g PO AC 7 Days Qty: 21 0RF Rx Instructions: take 30 minutes prior to breakfast, lunch, and dinner pantoprazole 40 mg tablet,delayed release (DR/EC) 40 mg PO BID Qty: 60 1RF Discontinued naproxen 500 mg Tablet 500 mg PO BID PRN (Reason: Pain) Discharge Orders: Discharge Order (Routine); Ordered 04/24/25 Ordered By: Diego Caban/Other Patient Handouts: What Is a Hiatal Hernia?, Tips to Control Acid Reflux, Soft Soso Diet Dc Admission Data Admit Date/Time: 04/22/25 16:09 Attending Provider: Diego Bach Admit Provider: Diego Bach Primary Care Provider: Yakov Gardner Other Providers: Siuta,Diego R Other Interventions: Discharge Summary Assessment (RN) Last Done: 04/24/25 10:51 Hospital Stay Data Consultations 04/22/25 14:11 ED Decision to Admit Stat Diagnostic Imagining Performed 04/22/25 19:18 CTA chest w con [CT angio chest w con] Stat Pending Results Patient Have Any Pending Studies at Discharge: No Discharge Instructions Given to Patient (Per Discharging Provider) Ms Daly, James were hospitalized for a prolonged episode of chest discomfort. Symptoms gradually improved with use of antacid medicines. Large work-up to ensure this was not your heart was normal/negative. Troponins (blood work for the heart) x 3 were normal. EKGs were normal. Echocardiogram showed normal heart function and normal valve function. Telemetry heart monitoring did not show any abnormal heart rhythms. We performed CT scan of your chest and this did not show pulmonary emboli blood clots, dissection of your aorta, pneumonia, tumors, fluid or other abnormalities. At this time we have you on a combination of pantoprazole and carafate (sucralfate). Both of these block stomach acid to allow healing in your stomach and esophagus. Recommendations - 1. pantoprazole 40mg twice daily - take your first dose TONIGHT at bedtime. 2. carafate (sucralfate) 1 gram three times daily, about 30 minutes before each meal - for 1 week only. 3. if needed you can take elxm-kvs-hhebrmc pepcid (famotidine) 20mg up to twice daily as needed for reflux symptoms, upset stomach, etc. I suspect that with pantoprazole & carafate you likely won't have to take pepcid that often. 4. reflux and hiatal hernia precautions - see handouts. 5. soft/bland diet for at least 1 week - see handout. 6. please avoid use of zflm-whu-kbemtdi anti-inflammatory pills including aspirin, motrin, ibuprofen, naprosyn, aleve as these can irritate your stomach & esophagus. 7. please avoid all forms of alcohol over the next 1-2 weeks. 8. please limit caffeinated beverages to 1-2/day over the next several days. 9. I would recommend seeing your gastrointestinal doctor in [place] and having upper endoscopy ("EGD") as soon as possible. 10. finally, if you have persistent or worsening chest symptoms despite taking the prescribed antacids, shortness of breath, sweats, nausea/vomiting - please s elim ira medical attention right away by returning to [facility]. It was our pleasure caring for you! -Diego Bach, [facility] Coding Diagnoses Chest pain R07.9 Chest pain type: unspecified Essential hypertension I10 Tobacco abuse Z72.0 Gastro-esophageal reflux K21.9 Hiatal hernia K44.9 Hyperlipidemia E78.5
== END 2025-04-24 11:22 | disposition home or self-care (01) ==
LOC: 2S 11:30 → ED 11:30 → 2S 18:16